=== PATIENT | male | born 1970 | race Caucasian/White ===

== ENCOUNTER 2020-10-26 09:00 | Emergency (ER) | payer MEDICAID ==
[~2020-10-26] VITALS: Ht 165.1 cm; Wt 77.1 kg
[2020-10-26 09:06] VITALS: BP 138/75
--- NOTE | 2020-10-26 09:09 | NUR ---
TO ED 11 AMBULATORY.
[2020-10-26] MEDS ORDERED: ONDANSETRON 4 MG/2 ML VIAL IVP ONE (09:15)
[2020-10-26] MEDS ORDERED: KETOROLAC 30 MG/ML VIAL IVP ONE (09:15)
[2020-10-26] MEDS ORDERED: NACL 0.9% 1,000 ML IV SCH (09:15)
--- NOTE | 2020-10-26 09:15 | NUR ---
RECEIVED A 50/M FROM TRIAGE WITH RIGHT FLANK PAIN RADIATING TO RLQ X 2 WEEKS. REPORTS SEVERE N/V X TODAY. PT REPORTS THAT PAIN IS INTERMITTENT AND AT ITS WORST IS A 10/10. NO DISTRESS NOTED, AMBULATORY TO ED BED FROM TRIAGE. BEDSIDE FOR MSE.
--- NOTE | 2020-10-26 09:28 | NUR ---
BLOOD WORK COLLECTED BEDSIDE AND WALKED OVER TO LAB
[2020-10-26 09:38] LABS: BASOPHILS % (AUTO) 0.7 % (0.0-2.0); EOSINOPHILS % (AUTO) 0.4 % (0.0-4.0); HEMATOCRIT 42.6 % (36-52); HEMOGLOBIN 14.3 g/dL (12.0-18.0); LYMPHOCYTES # (AUTO) 0.7 K/uL (2.0-11.5); MEAN CORPUSCULAR HEMOGLOBIN 30 pg (27-31); MEAN CORPUSCULAR HGB CONC 34 g/dL (33-37); MEAN CORPUSCULAR VOLUME 89.6 fL (80-94); MONOCYTES # (AUTO) 0.2 K/uL (0.8-1.0); MONOCYTES % (AUTO) 3.2 % (1.7-9.3); NEUTROPHILS # (AUTO) 6.3 K/uL (1.8-7.7); PLATELET COUNT (AUTO) 160 K/uL (140-450); RED BLOOD CELL COUNT(AUTO) 4.75 MIL/uL (4.20-6.10); RED CELL DISTRIBUTION WIDTH 13.1 % (11.6-13.7); WHITE BLOOD COUNT (AUTO) 7.3 K/uL (4.8-10.8)
[2020-10-26 09:41] LABS: LYMPHOCYTES % (AUTO) 9.7 % (20.5-51.1)
[2020-10-26 09:47] LABS: ALBUMIN 3.9 g/dL (3.4-5.0); ANION GAP 12.5 (8-16); CARBON DIOXIDE 26.4 mmol/L (21-32); POTASSIUM 3.9 mmol/L (3.5-5.1); TOTAL BILIRUBIN 1.1 mg/dL (0.0-1.0)
--- NOTE | 2020-10-26 10:00 | NUR ---
TO CT VIA [facility]
--- NOTE | 2020-10-26 10:15 | NUR ---
RETURNED FROM CT. ULTRASOUND BEDSIDE.
[2020-10-26] MEDS ORDERED: FAMO-92 PO (12:57)
[2020-10-26] MEDS ORDERED: ONDA-24 SL (12:57)
[2020-10-26] MEDS ORDERED: NAPR-54 PO (12:57)
--- NOTE | 2020-10-26 13:40 | NUR ---
Patient discharged with v/s stable. Written and verbal after care instructions given and explained. Patient alert, oriented and verbalized understanding of instructions. Ambulatory with steady gait. All questions addressed prior to discharge. ID band removed. Patient advised to follow up with PMD. Rx of PEPCID, NAPROXEN, AND ZOFRAN given. Patient educated on indication of medication including possible reaction and side effects. Opportunity to ask questions provided and answered.
--- NOTE | 2020-10-26 13:40 | NUR ---
IV removed, catheter intact and site benign. Applied folded 4x4 gauze and tape to stop bleeding.
[2020-10-26 13:53] VITALS: BP 104/57
== END 2020-10-26 13:40 | disposition home or self-care (01) ==
LOC: MED 09:00
DX: R10.9 Unspecified abdominal pain (principal); R79.89 Other specified abnormal findings of blood chemistry; Z79.899 Other long term (current) drug therapy
CPT/HCPCS: 74176; 76705; 80053; 81002; 83690; 85025; 96361; 96374; 96375; 99285; J1885; J2405; J7030; 81025